=== PATIENT | female | born 1980 | race Caucasian/White ===

== ENCOUNTER 2017-07-02 11:42 | Emergency (ER) | END 2017-07-02 14:48 | disposition home or self-care (01) ==

== ENCOUNTER 2018-11-01 21:47 | Emergency (ER) | payer OTHER ==
[~2018-11-01] VITALS: Ht 160 cm; Wt 58.9 kg
[~2018-11-01 21:47] MED LIST: NAPR-985 PO
[2018-11-01 21:52] VITALS: Ht 160 cm; Wt 58.9 kg
[2018-11-01] MEDS ORDERED: HC30CR25 TOP (23:53)
[2018-11-01] MEDS ORDERED: BEN50 PO (23:53)
[2018-11-01] MEDS ORDERED: RANI150T35 PO (23:53)
--- NOTE | 2018-11-01 23:59 | ERD ---
ER Documentation Chief Complaint Chief Complaint GEN BODY RASH; POSS SPIDER BITED X3DAYS HPI 38-year-old female presented to ED for small red lesions on bilateral legs right flank back left flank x1 week. Patient states she recently went to [place] and since return she is felt the small little bites she does not know if there are spider bites. Patient denies any allergies to medications and states that this is never happened to her before. The patient has 2 cats in the house but they do not have fleas and she says she gives them monthly flea medications. Patient lives with her daughter who is also starting to experience the same symptoms. All the symptoms started since she is come back from [facility]. ROS All systems reviewed and are negative except as per history of present illness. Medications Home Meds Active Scripts Hydrocortisone* Topical (Hydrocortisone* Topical) 2.5%-28.3 Gm Cream..g., 1 APPLIC TOP BID, #1 TUB Prov:AGUS RODRIGUEZ PA-C 11/01/18 Ranitidine Hcl* (Zantac*) 150 Mg Tablet, 150 MG PO BID PRN for EPIGASTRIC PAIN for 7 Days, #7 TAB Prov:AGUS RODRIGUEZ PA-C 11/01/18 Diphenhydramine Hcl* (Benadryl*) 50 Mg Cap, 50 MG PO Q6 PRN for ALLERGIC REACTION, #30 CAP Prov:AGUS RODRIGUEZ PA-C 11/01/18 Naproxen* (Naprosyn*) 500 Mg Tablet, 500 MG PO BID PRN for PAIN AND/OR INFLAMMATION, #30 TAB Prov:CHIO EDGAR PA-C 07/02/17 Allergies Allergies: Coded Allergies: No Known Drug Allergy (Verified Allergy, Unknown, 05/18/11) PMhx/Soc Medical and Surgical Hx: pt denies Medical Hx History of Surgery: Yes (C SECTION, BREAST AUGMENTATION) Anesthesia Reaction: No Hx Neurological Disorder: No Hx Respiratory Disorders: No Hx Cardiac Disorders: No Hx Psychiatric Problems: No Hx Miscellaneous Medical Probl: No Hx Alcohol Use: Yes (SOCIAL) Hx Substance Use: No Hx Tobacco Use: Yes Smoking Status: Light tobacco smoker FmHx Family History: No diabetes, No coronary disease, No other Physical Exam Vitals Vital Signs Date Temp Pulse Resp B/P (MAP) Pulse Ox O2 O2 Flow FiO2 Time Delivery Rate 11/01/18 97.8 73 19 150/65 98 21:52 (93) Physical Exam Const: Anxious Neck: Full range of motion. No meningismus. Resp: Clear to auscultation bilaterally Cardio: Regular rate and rhythm, no murmurs Abd: Soft, non tender, non distended. Normal bowel sounds Skin: Less than 1 cm erythematous lesions consistent with bedbug bites Results 24 hrs Current Medications Medications Dose Sig/Zachariah Start Time Status Last (Trade) Ordered Route PRN Stop Time Admin Dose Reason Admin Ranitidine 150 mg ONCE ONCE 11/02/18 HCl PO 00:00 (Zantac) 11/02/18 00:01 25 mg ONCE ONCE 11/02/18 Diphenhydrami PO 00:00 ne HCl 11/02/18 00:01 (Benadryl) 10 mg ONCE ONCE 11/02/18 Dexamethasone IM 00:00 (Decadron) 11/02/18 00:01 Procedures/MDM Medications given in ER: Decadron Benadryl Zantac Patient tolerated medication well with no adverse reactions. Patient reported improvement in pain. Medical decision makin-year-old female presented to ED for small lesions consistent with bites. Based off the patient's history and physical exam it appears that she may have gotten bedbugs from staying in [place] and brought her back to her house. The patient shows no signs of respiratory distress lungs are clear bilateral and patient O2 sats are 98% on room air. At this time I have low suspicion for anaphylactic reaction. The lesions are not fluctuant with no discharge and do not appear infected at this time I have low suspicion for an impetigo, MRSA. There is a negative Nikolsky sign and the patient is afebrile at this time I have low suspicion for Kawasaki and Wylie-Ronnie syndrome. The patient will be treated outpatient with a prescription for Benadryl Zantac and hydrocortisone topical. Advised patient follow-up with primary care provider in 1 to 2 days regarding this visit. I advised patient symptoms worsen return to ER immediately patient is in compliant with the treatment plan and had no further questions upon discharge Prescription for home: Benadryl Zantac Hydrocortisone topical I have discussed with the patient proper use and common side effects to expert with the medication . I advised the patient/family to speak with the pharmacist dispensing the medication to be advised of any potential drug interactions with other medication or supplements they may be taking. Discharge: At this time, patient is stable for discharge and outpatient management. I have instructed the patient to follow-up with his\her primary care physician in 1 to 2 days. I have discussed with the patient the possibility of needing to see a specialist for further work-up and imaging studies if symptoms persist. I have instructed the patient to promptly return to the ER for any new or worsening symptoms including increased pain, fever, nausea, vomiting, weakness or LOC. The patient and\or family expressed understanding of and agreement with this plan. All questions were answered. Home care instructions were provided. Disclaimer: Inadvertent spelling and grammatical errors are likely due to EHR\dictation software use and do not reflect on the overall quality of patient care. Also, please note that the electronic time recorded on the note does not necessarily reflect the actual time of the patient encounter. Departure Diagnosis: Primary Impression: Rash Condition: Stable Patient Instructions: Self-Care for Skin Rashes Referrals: [facility] YOU HAVE RECEIVED A MEDICAL SCREENING EXAM AND THE RESULTS INDICATE THAT YOU DO NOT HAVE A CONDITION THAT REQUIRES URGENT TREATMENT IN THE EMERGENCY DEPARTMENT. FURTHER EVALUATION AND TREATMENT OF YOUR CONDITION CAN WAIT UNTIL YOU ARE SEEN IN YOUR DOCTORS OFFICE WITHIN THE NEXT 1-2 DAYS. IT IS YOUR RESPONSIBILITY TO MAKE AN APPOINTMENT FOR FOLOW-UP CARE. IF YOU HAVE A PRIMARY DOCTOR --you should call your primary doctor and schedule an appointment IF YOU DO NOT HAVE A PRIMARY DOCTOR YOU CAN CALL OUR PHYSICIAN REFERRAL HOTLINE AT IF YOU CAN NOT AFFORD TO SEE A PHYSICIAN YOU CAN CHOSE FROM THE FOLLOWING [facility] CLINICS [facility] [address] [facility] [address] [facility] [address] [facility] [address] [facility] [address]. [facility]. [address] [facility] [facility] YOU HAVE RECEIVED A MEDICAL SCREENING EXAM AND THE RESULTS INDICATE THAT YOU DO NOT HAVE A CONDITION THAT REQUIRES URGENT TREATMENT IN THE EMERGENCY DEPARTMENT. FURTHER EVALUATION AND TREATMENT OF YOUR CONDITION CAN WAIT UNTIL YOU ARE SEEN IN YOUR DOCTORS OFFICE WITHIN THE NEXT 1-2 DAYS. IT IS YOUR RESPONSIBILITY TO MAKE AN APPOINTMENT FOR FOLOW-UP CARE. IF YOU HAVE A PRIMARY DOCTOR --you should call your primary doctor and schedule and appointment IF YOU DO NOT HAVE A PRIMARY DOCTOR YOU CAN CALL OUR PHYSICIAN REFERRAL HOTLINE AT . IF YOU CAN NOT AFFORD TO SEE A PHYSICIAN YOU CAN CHOSE FROM THE FOLLOWING [facility] INSTITUTIONS: [facility] [address] [place] [address] [facility] [address] [place] [address] [facility] [address] [place] [address] Additional Instructions: Call your primary care doctor TOMORROW for an appointment during the next 2-3 days.See the doctor sooner or return here if your condition worsens before your appointment time. AGUS RODRIGUEZ PA-C Nov 01, 2018 23:59
[2018-11-02] MEDS ORDERED: DIPHENHYDRAMINE 25 MG CAP PO ONE
[2018-11-02] MEDS ORDERED: RANITIDINE 150 MG TAB PO ONE
[2018-11-02] MEDS ORDERED: DEXAMETHASONE 10 MG/ML 1 ML INJ IM ONE
[2018-11-02 00:21] VITALS: BP 121/77; PULSE 60; RESP 18
== END 2018-11-02 00:27 | disposition home or self-care (01) ==
LOC: FTE 21:47
DX: S80.861A Insect bite (nonvenomous), right lower leg, initial encounter (principal); F17.210 Nicotine dependence, cigarettes, uncomplicated; S80.862A Insect bite (nonvenomous), left lower leg, initial encounter; S30.861A Insect bite (nonvenomous) of abdominal wall, initial encounter; W57.XXXA Bitten or stung by nonvenomous insect and other nonvenomous arthropods, initial encounter; Y92.9 Unspecified place or not applicable
CPT/HCPCS: 96372; 99284; J1100

== ENCOUNTER 2018-12-18 13:49 | Emergency (ER) | payer OTHER ==
[~2018-12-18] VITALS: Ht 160 cm; Wt 59.5 kg
[~2018-12-18 13:49] MED LIST changes: +BEN50 PO; +EPIN0.3P4 INJ; +HC30CR25 TOP; +PRED20TA PO; +RANI150T35 PO
[2018-12-18 13:58] VITALS: Ht 160 cm; Wt 59.5 kg
[2018-12-18] MEDS ORDERED: METHYLPREDNISOLONE 125 MG INJ IV STA (14:15)
[2018-12-18] MEDS ORDERED: DIPHENHYDRAMINE 50 MG INJ IV ONE (14:30)
[2018-12-18] MEDS ORDERED: FAMOTIDINE 20 MG INJ IV ONE (14:30)
[2018-12-18 14:39] VITALS: BP 134/83; PULSE 102; RESP 18
== END 2018-12-18 15:06 | disposition home or self-care (01) ==
LOC: FTE 13:49
DX: L50.0 Allergic urticaria (principal); F17.210 Nicotine dependence, cigarettes, uncomplicated
CPT/HCPCS: 96374; 96375; 99284; J1200; J2930